=== PATIENT | male | born 1985 | race Caucasian/White ===

== ENCOUNTER 2019-06-21 17:30 | Observation (INO) ==
[2019-06-21] MEDS ORDERED: NS 1,000 ML IV ONE ×3 (17:53→20:25)
[2019-06-21 18:19] LABS: URINE SOURCE CLEAN CATCH
[2019-06-21 18:23] LABS: BASO% 1.7 % (0.0-0.8); EOS# 0.07 X1000 (0.0-0.7); EOS% 1.2 % (0.0-10.0); HEMATOCRIT 40.6 % (42.0-52.0); HEMOGLOBIN 13.6 g/dL (14.0-18.0); IMM GRAN# 0.01 X1000 (0.0-0.04); IMM GRAN% 0.2 % (0.0-0.5); LYMPH# 2.72 X1000 (1.2-3.4); LYMPH% 45.2 % (20.5-51.1); MCH 29.4 PG (27-31); MCHC 33.5 g/dL (33-37); MCV 87.7 FL (81-99); MONO# 0.88 X1000 (0.11-0.59); MONO% 14.6 % (1.7-9.3); MPV 9.7 FL (7.4-10.4); NEUT# 2.24 X1000 (1.4-6.5); NEUT% 37.1 % (42.2-75.2); PLT 373 X1000 (130-400); RBC 4.63 XMIL (4.7-6.1); RDW 15.2 % (11.5-14.5); WBC 6.02 X1000 (4.8-10.8)
[2019-06-21 18:28] LABS: BILIRUBIN URINE LARGE (NEGATIVE); BLOOD URINE NEGATIVE (NEGATIVE); COLOR YELLOW; GLUCOSE URINE NEGATIVE (NEGATIVE); KETONE URINE NEGATIVE (NEGATIVE); LEUKOCYTES URINE NEGATIVE (NEGATIVE); NITRITE URINE NEGATIVE (NEGATIVE); PH URINE 6.5; PROTEIN URINE TRACE mg/dL (NEGATIVE); SP GRAVITY URINE 1.017; TURBIDITY URINE HAZY (CLEAR); UROBILINOGEN URINE 2 mg/dL (NORMAL)
--- NOTE | 2019-06-21 18:31 | PROVIDER DOCUMENTATION ---
This chart was entered by Emily Fitzpatrick Scribe, acting as scribe for Hugo Barrera MD. HPI-Abdominal Pain/GI Problem - General Source: patient - History of Present Illness-ABD Nature of Presenting Problems: Pt is a 34 yom who presents to the ED with a cc of intermittent suprapubic abd pain. states that the pain last 1 min. reports quintanilla stool. reports nausea and n mis congestion. denies any fever. states that bm worsens pain. States that the pain began 2 days ago. Pt is jaundice in appearance. Abdominal Pain Onset Location: reports: RUQ, suprapubic Quality of Pain: reports: burning Severity in ED: reports: mild Onset/Duration: reports: 2 days ago Timing: reports: improving Activities at Onset: reports: none Modifying Factors: improves with: nothing Associated Symptoms: reports: sinus congestion/drainage Last BM: this evening Dark Stools Present?: reports: none noticed, other (jacobs) Rectal Bleeding: reports: none Rectal Pain: reports: none Emesis Description: reports: none Bruising or Bleeding Gums?: No Similar Symptoms Previously?: No Recently seen or treated by another doctor?: No <Hugo Barrera - Last Filed: 06/21/19 18:31> <Lamonte Asencio - Last Filed: 06/21/19 20:25> - General Chief Complaint: Abdominal Pain Stated Complaint: ABD PAIN Time Seen by Provider: 06/21/19 17:44 Allergies/Adverse Reactions: Patient Allergies Allergy/AdvReac Type Severity Reaction Status Date / Time Penicillins Allergy Unknown Verified 08/24/17 23:36 Home Medications: Home Medication List Medication Instructions Recorded Confirmed Last Taken Type Darunavir/Cobicistat [Prezcobix 1 dose PO DIRECTED 06/21/19 06/21/19 Unknown History 800 mg-150 mg Tablet] Emtricitabine/Tenofov Alafenam 1 tab PO DIRECTED 06/21/19 06/21/19 Unknown History [Descovy 200-25 mg Tablet] Review of Systems - Adult - REVIEW OF SYSTEMS - ADULT Constitutional: reports: see HPI Eyes: reports: no symptoms reported Ears, Nose, Mouth & Throat: reports: no symptoms reported Cardiovascular: reports: no symptoms reported Respiratory: reports: no symptoms reported Gastrointestinal: reports: see HPI, abdominal pain Genitourinary: reports: no symptoms reported Musculoskeletal: reports: no symptoms reported Integumentary: reports: no symptoms reported Neurological: reports: no symptoms reported Psychiatric: reports: no symptoms reported Endocrine: reports: no symptoms reported Hematologic/Lymphatic: reports: no symptoms reported Allergic/Immunologic: reports: no symptoms reported All Other Systems: Reviewed and Negative <Hugo Barrera - Last Filed: 06/21/19 18:31> Past History - Adult - PAST MEDICAL HISTORY-ADULT Review of Records: reports: Old Records Reviewed, Nursing Assessment Review, Medications Reviewed, Social history reviewed & non-contributory. Major Childhood Illnesses: reports: denies history Cardiovascular: reports: denies history Respiratory: reports: denies history Gastrointestinal: reports: denies history Obstetrical/Gynecological: reports: denies history Genitourinary: reports: denies history Musculoskeletal: reports: denies history Neurological: reports: denies history Endocrine/Immune: reports: HIV/AIDS Other Conditions: reports: denies history - IMMUNIZATION STATUS Childhood Immunizations: See Nurse Assessment Flu Vaccine: See Nurse Assessment - FAMILY HISTORY Family History: reviewed, not pertinent - SOCIAL HISTORY Smoking: non-smoker <Hugo Barrera - Last Filed: 06/21/19 18:31> Physical Exam-General - PHYSICAL EXAM-ADULT Initial Vital Signs Reviewed: No - CONSTITUTIONAL General Appearance: alert, other (JAUNDICE in color) - EYES Eyes: scleral icterus (slightly, 2-3 days). negative: pink conjunctivae (jaundice) - HEAD, EARS, NOSE, MOUTH & THROAT HENMT: normocephalic/atraumatic - RESPIRATORY Respiratory: chest non-tender, lungs clear, normal breath sounds. negative: crackles, rhonchi - CARDIOVASCULAR Cardiovascular: normal peripheral pulses, regular rate, rhythm - GASTROINTESTINAL (ABDOMEN) Abdominal Exam: normal bowel sounds, tenderness (suprapubic and RUQ). negative: non tender - SKIN Integumentary: jaundice. negative: normal color - PSYCHIATRIC Psych/Mental Status: normal mood/affect, normal thought content, normal thought process, oriented x 3 <Hugo Barrera - Last Filed: 06/21/19 18:31> Progress - PLAN OF CARE/RESULTS Progress/Plan/Lab Results: Vital Signs - 8 hr 06/21/19 17:36 Temperature 98 F Pulse Rate 78 Respiratory Rate 18 Blood Pressure 131/85 O2 Sat by Pulse Oximetry 98 Orders Category Date Time Status AMYLASE [CHEM] Stat Lab 06/21/19 17:40 Ordered CBC WITH DIFF [HEME] Stat Lab 06/21/19 17:40 Ordered COMPREHENSIVE METABOLIC PANEL [CHEM] Stat Lab 06/21/19 17:40 Uncollected LIPASE [CHEM] Stat Lab 06/21/19 17:40 Uncollected URINALYSIS W/POSS RFLX CULT [URINALYSIS] Stat Lab 06/21/19 17:40 Uncollected Result Diagrams: 06/21/19 18:18 - CHANGE OF SHIFT REPORT (ED Provider) 1 Report Given and Care Transferred to:: Luis M Time of Transfer: 19:00 Items Pending: Labs <Hugo Barrera - Last Filed: 06/21/19 18:31> - PLAN OF CARE/RESULTS Progress/Plan/Lab Results: Vital Signs - 8 hr 06/21/19 17:36 Temperature 98 F Pulse Rate 78 Respiratory Rate 18 Blood Pressure 131/85 O2 Sat by Pulse Oximetry 98 Laboratory Results - last 24 hr 06/21/19 06/21/19 06/21/19 18:15 18:18 18:18 WBC 6.02 RBC 4.63 L Hgb 13.6 L Hct 40.6 L MCV 87.7 MCH 29.4 MCHC 33.5 RDW Std Deviation 15.2 H Plt Count 373 MPV 9.7 Immature Gran % (Auto) 0.2 Neut % (Auto) 37.1 L Lymph % (Auto) 45.2 [place] % (Auto) 14.6 H Eos % (Auto) 1.2 Baso % (Auto) 1.7 H Immature Gran # (Auto) 0.01 Neut # (Auto) 2.24 Lymph # (Auto) 2.72 [place] # (Auto) 0.88 H Eos # (Auto) 0.07 Baso # (Auto) 0.10 Segmented Neutrophils 24 L Band Neutrophils 2 H Lymphocytes 48 Monocytes 18 H Atypical Lymphocytes 8.0 Hypochromia 1+ Large Platelets OCCASIONAL Sodium Potassium Chloride Carbon Dioxide Anion Gap BUN Creatinine Estimated GFR/1.73 m2 BUN/Creatinine Ratio Glucose Calculated Osmolality Calcium Total Bilirubin AST ALT Alkaline Phosphatase Creatine Kinase Total Protein Albumin Globulin Albumin/Globulin Ratio Amylase 56 Lipase Urine Source CLEAN CATCH Urine Color YELLOW Urine Turbidity HAZY Urine pH 6.5 Ur Specific Wilson 1.017 Urine Protein TRACE A Ur Glucose (Stick) NEGATIVE Ur Ketones (Stick) NEGATIVE Urine Blood NEGATIVE Urine Nitrite NEGATIVE Urine Bilirubin LARGE A Urobilinogen Dipstick 2 A Urine Leukocytes NEGATIVE Urine WBC (Auto) <10 Urine RBC (Auto) <10 U Epithel Cells (Auto) <10 Urine Bacteria (Auto) NEGATIVE Urine Crystals NONE SEEN Small Round Cells Not Reportable Urine Casts NONE SEEN Urine Yeast-like Cells NONE SEEN 06/21/19 06/21/19 18:18 18:18 WBC RBC Hgb Hct MCV MCH MCHC RDW Std Deviation Plt Count MPV Immature Gran % (Auto) Neut % (Auto) Lymph % (Auto) Bingham % (Auto) Eos % (Auto) Baso % (Auto) Immature Gran # (Auto) Neut # (Auto) Lymph # (Auto) Bingham # (Auto) Eos # (Auto) Baso # (Auto) Segmented Neutrophils Band Neutrophils Lymphocytes Monocytes Atypical Lymphocytes Hypochromia Large Platelets Sodium 140 Potassium 4.4 Chloride 99 Carbon Dioxide 31 Anion Gap 11 BUN 7 L Creatinine 0.5 L Estimated GFR/1.73 m2 > 60 BUN/Creatinine Ratio 14 Glucose 115 H Calculated Osmolality 278 Calcium 8.8 Total Bilirubin 9.10 H AST 161 H ALT 603 H Alkaline Phosphatase 432 H Creatine Kinase 30 Total Protein 7.5 Albumin 3.5 Globulin 4.0 Albumin/Globulin Ratio 1.0 Amylase Lipase 41 Urine Source Urine Color Urine Turbidity Urine pH Ur Specific Wilson Urine Protein Ur Glucose (Stick) Ur Ketones (Stick) Urine Blood Urine Nitrite Urine Bilirubin Urobilinogen Dipstick Urine Leukocytes Urine WBC (Auto) Urine RBC (Auto) U Epithel Cells (Auto) Urine Bacteria (Auto) Urine Crystals Small Round Cells Urine Casts Urine Yeast-like Cells Orders Category Date Time Status CT ABD/PELVIS W/IV CONT ONLY [CT] Stat Exams 06/21/19 18:57 Completed AMYLASE [CHEM] Stat Lab 06/21/19 18:18 Completed CBC WITH DIFF [HEME] Stat Lab 06/21/19 18:18 Completed CK PROFILE [SP CHEM] Stat Lab 06/21/19 18:18 Completed COMPREHENSIVE METABOLIC PANEL [CHEM] Stat Lab 06/21/19 18:18 Completed HEPATITIS PROFILE [HH] Routine Lab 06/21/19 18:18 Received LIPASE [CHEM] Stat Lab 06/21/19 18:18 Completed URINALYSIS W/POSS RFLX CULT [URINALYSIS] Stat Lab 06/21/19 18:15 Completed URINE MANUAL MICROSCOPIC [URINALYSIS] Stat Lab 06/21/19 18:15 Completed 0.9% Sodium Chloride Inj [Ns] 1,000 ml Med 06/21/19 17:53 Discontinued IV 999 mls/hr 0.9% Sodium Chloride Inj [Ns] 1,000 ml Med 06/21/19 19:53 Active IV 999 mls/hr Result Diagrams: 06/21/19 18:18 06/21/19 18:18 - REASSESSMENT Reassessment #1 Status: improving (feeling better with hydration discussed labs/xrays in depth with patient ---patient is OK with admissions [facility] discussed with accepting in transfer) <Lamonte Asencio - Last Filed: 06/21/19 20:25> Departure <Hugo Barrera - Last Filed: 06/21/19 18:31> - Departure Date of Disposition Decision: 06/21/19 Time of Disposition Decision: 20:24 Certified Medical Emergency: Emergent - Critical Care Note This patient required my direct & personal management of CC.: No <Lamonte Asencio - Last Filed: 06/21/19 20:25> - Departure DIAGNOSIS: Acute hepatitis, Jaundice, hepatocellular HIV (human immunodeficiency virus infection) Qualifiers: HIV symptom status: asymptomatic Qualified Code(s): Z21 - Asymptomatic human immunodeficiency virus [HIV] infection status Disposition: ADMITTED INPATIENT 09 Condition: Stable Referrals and Follow-Ups: Mello Zaragoza MD [Primary Care Provider] - Attestation - Physician/ DENISHA Attestation Patient care was provided by Advanced Practice Provider:: No The physician spent face to face time with patient:: Yes Advanced Practice Provider documentation review:: Supervising physician onsite and consulted in the evaluation and care of this patient. The physician did have a face to face encounter with the patient. <Hugo Barrera - Last Filed: 06/21/19 18:31> - Physician/ DENISHA Attestation Patient care was provided by Advanced Practice Provider:: No The physician spent face to face time with patient:: Yes Advanced Practice Provider documentation review:: Supervising physician onsite and consulted in the evaluation and care of this patient. The physician did have a face to face encounter with the patient. <Lamonte Asencio - Last Filed: 06/21/19 20:25> This chart was documented by the indicated scribe, (Emily Fitzpatrick Scribe) and accurately reflects the services I performed and decisions made by me, Hugo Barrera MD, as attested by the provider's signature.
[2019-06-21 18:36] LABS: AGAP 11; ALBUMIN 3.5 g/dL (3.5-5.0); ALKALINE PHOSPHATASE 432 U/L (32-122); BUN 7 mg/dL (8-22); CALCIUM 8.8 mg/dL (8.8-10.2); CHLORIDE 99 mmol/L (98-107); COSMO 278; CREATININE 0.5 mg/dL (0.7-1.2); ESTIMATED GFR > 60; GLUCOSE 115 mg/dL (70-104); GOT 161 U/L (10-34); GPT 603 U/L (10-44); LIPASE 41 U/L (13-60); POTASSIUM 4.4 mmol/L (3.5-5.1); SODIUM 140 mmol/L (136-145); TCO2 31 mmol/L (25-35); TOTAL PROTEIN 7.5 g/dL (6.3-8.3)
[2019-06-21 18:50] LABS: UR EPITHELIAL CELLS <10 /HPF (<10); URINE BACTERIA NEGATIVE /HPF; URINE CASTS NONE SEEN; URINE CRYSTALS NONE SEEN; URINE RBC <10 /HPF (<10); URINE WBC <10 /HPF (<10); URINE YEAST NONE SEEN
[2019-06-21 18:56] LABS: BANDS 2 % (0-1); LYMPHS 48 % (21-51); MONO 18 % (1-9); SEGS 24 % (42-75)
[2019-06-21 18:57] LABS: HYPOCHROM 1+; LARGE PLATELETS OCCASIONAL
--- NOTE | 2019-06-21 19:35 | Diag Imaging Result Doc PS360 ---
EXAM: CT ABD/PELVIS W/IV CONT ONLY 06/21/2019 HISTORY: abd pain, elevated LFTs TECHNIQUE: This exam was performed using automated exposure control, adjustment of mA or kV according to patient size, and/or use of iterative reconstruction technique. COMMENT: There are no previous studies. There is no evidence of acute disease in the visualized portion of the chest. There is periportal edema. The spleen is enlarged measuring over 14.6 cm in AP dimension. The pancreas is unremarkable. The kidneys are without evidence of hydronephrosis or mass. The gallbladder is contracted. There is some retained fluid and gas with solid contents in the stomach. There is stool in the colon. The small bowel is not distended. The aorta is not distended. There is a 19 mm bety hepatis node otherwise there is no evidence of significant adenopathy. Pelvis: The appendix is normal in appearance. There is minimal free fluid. The urinary bladder is not distended. There appears to be a nondistended testicle in the left inguinal canal. The regional skeleton is intact. IMPRESSION: Periportal edema and bety hepatis adenopathy suggestive of hepatitis. Mild splenomegaly. Electronically signed by Victor Manuel Damon 06/21/2019 7:33 PM
[2019-06-21] MEDS ORDERED: ZOFRAN ODT PO PRN (20:25)
[2019-06-21] MEDS ORDERED: NICODERM PATCH TD ONE ×2 (21:33→21:46)
[2019-06-22] MEDS ORDERED: ZOFRAN IV PRN (01:02)
[2019-06-22] MEDS ORDERED: NICODERM PATCH TD PRN (01:02)
[2019-06-22] MEDS ORDERED: MORPHINE IV PRN (01:02)
--- NOTE | 2019-06-22 01:59 | HISTORY AND PHYSICAL ---
ADDENDUM: PRIMARY CARE PROVIDER: Mello Zaragoza. REASON FOR ADMISSION: Patient was admitted via [facility] to our service for GI evaluation for right upper quadrant and epigastric pain of 5 days duration, passage of dark urine, pale stools and pruritus of the same duration. The patient denies any recent use of any medication although further questioning did reveal that he had been on Mobic for the last several months in addition to his HIV regimen. No herbal remedies. No recent history of travel. He denies any fever, chills, but admits to having loose stools. Exam is only notable for tenderness in the right upper quadrant, epigastric areas. No rebound or guarding. The rest of exam is benign. He does have icterus of the sclerae of his eyes. His lab work is only notable for AST 161, ALT 300, alkaline phosphatase 432 with total bilirubin of 9. CT showed periportal edema and bety hepatis adenopathy suggestive of hepatitis and mild splenomegaly. The patient does have clear features of obstructive jaundice probably secondary to periportal edema of the liver secondary to hepatitis. Suspect hepatitis could probably be drug-induced possibly from Mobic interaction with his HIV regimen. Alternative diagnosis is viral hepatitis. The patient denies any use of alcohol products. For now, supportive care, consult GI and we will repeat get an ultrasound to assess degree of obstruction. We will also start the patient on Questran for the itching 1 g q.4. cc: Timur Vora MD MTDD
--- NOTE | 2019-06-22 07:08 | HISTORY AND PHYSICAL ---
PRIMARY CARE PROVIDER: Dr. Mello Zaragoza. CHIEF COMPLAINT: Abdominal pain. HISTORY OF PRESENT ILLNESS: Mr. Interiano is a 34-year-old, male, who reports now that for 3 days, he has had right and left lower abdominal pain and right upper quadrant abdominal pain, for which he describes a constant pain that is crampy in nature. The patient has reported nausea, though no vomiting. He has been reporting diarrhea associated with this as well, and has been having reportedly jacobs stools. He reported that the diarrhea did start about 2 days prior to his abdominal pain. He denies any fever, body aches, or chills. He reports some occasional dizziness when going from a lying to a sitting position, and has reported a dull headache for the last few days as well. He denies any shortness of breath, cough, or chest pain. He also has been reporting that he has had some sinus congestion and drainage, and has been sneezing a bit. Though he denies any dysuria or difficulty urinating, he has reported that his urine has been very dark in color. He denies any pain, numbness, tingling, or swelling in extremities. The patient denies any recent new medicine or medication changes, though does state that he has been taking meloxicam 15 mg p.o. daily. I believe it was for some joint pain he was having. He denies any alcohol use, though he is a smoker. He does smoke 5 cigarettes per day. He denies any other illicit drug use. He also denies any recent travel. Upon evaluation in the ER, he was noted to have elevated liver function tests. Urinalysis did show a large amount of bilirubin. They did perform a CT abdomen and pelvis, which did note periportal edema and bety hepatis adenopathy suggestive of hepatitis. There was some mild splenomegaly as well. The patient has been transferred to [facility] for further treatment and evaluation of his transaminitis and abdominal pain. REVIEW OF SYSTEMS: A 14-point review of systems was conducted with the patient, and all were negative, except for pertinent positives mentioned in the above HPI. PAST MEDICAL HISTORY: History of HIV. PAST SURGICAL HISTORY: The patient denies any previous surgery. SOCIAL HISTORY: The patient is a current smoker. He does smoke 5 cigarettes per day. He started smoking when he was 19. He stated that he has cut this back recently. He did previously smoke 1 pack per day. He denies any alcohol or illicit drug use. FAMILY HISTORY: Positive for his mother having diabetes mellitus and hypertension. His father has diabetes mellitus and hypertension as well. He reports that his siblings are healthy. ALLERGIES: The patient reports allergies to penicillin. HOME MEDICATIONS: 1. Klonopin 1 mg p.o. b.i.d. p.r.n. for anxiety. 2. Prezcobix 800 mg/150 mg tablet, 1 tablet p.o. as directed. 3. Descovy 200/25 mg tablet, 1 tablet by mouth once daily. 4. Mobic 15 mg p.o. daily. DIAGNOSTIC DATA: White blood cell count is 6020, hemoglobin 13.6, hematocrit 40.6, platelet count is 373,000. Sodium 140, potassium 4.4, chloride 99, serum bicarbonate is 31, BUN 7, creatinine 0.5, with a GFR greater than 60, glucose 115, calcium 8.8. Total bilirubin is 9.1, AST 161, ALT 603, alkaline phosphatase is 432, CK 30, amylase 56, lipase 41. Urinalysis was obtained via clean catch, and was positive for trace protein and large bilirubin, though was negative for glucose, ketones, blood, nitrites, leukocytes, white blood cells, or bacteria. CT abdomen and pelvis did show periportal edema and bety hepatis adenopathy suggestive of hepatitis. There was also mild splenomegaly noted. This is per Radiology. Please see full CT report for all detailed findings. PHYSICAL EXAMINATION: VITAL SIGNS: Temperature 98.2 degrees, heart rate 74, respirations 16, blood pressure is 133/68, oxygen saturation is 100% on room air. GENERAL: Mr. Interiano is a pleasant, 34-year-old, male. He was resting in the inpatient bed. He was in no acute distress. He was awake, alert, and able to answer questions appropriately. HEENT: Head is atraumatic, normocephalic. Pupils are equal, round, reactive to light, were 3 mm bilaterally and brisk. Sclerae did have jaundice noted. Oral mucosa was moist. Oropharynx was clear. NECK: Supple. Trachea midline. CARDIOVASCULAR: The patient has S1, S2 present. No murmurs, gallops, rubs appreciated with a regular rate and rhythm. PULMONARY: The patient has symmetrical chest expansion bilaterally. Lung sounds are clear to auscultation in bilateral full bell. ABDOMEN: Soft, nondistended. The patient did have tenderness noted in right upper quadrant and right lower and left lower quadrants. Bowel sounds were present in all 4 quadrants and were normoactive. EXTREMITIES: No cyanosis or edema noted. Pulse, motor, and sensory were intact in all extremities. Radial and pedal pulses are 2+ bilaterally. INTEGUMENTARY: The patient's skin color is slightly jaundiced. It is dry and intact. NEUROLOGICAL: The patient is alert and oriented to person, place, time, and situation. He is able to move all extremities. There are no focal neurological deficits noted. ASSESSMENT AND PLAN: 1. Transaminitis. 2. Abdominal pain. 3. Diarrhea. 4. History of human immunodeficiency virus. 5. Nicotine dependence. It is possible that the patient may have obstructive jaundice, possibly secondary to periportal edema of the liver secondary to hepatitis. It is possible that his hepatitis may be drug-induced, possibly from an interaction between his HIV regimen and his Mobic. Though we are going to continue to rule out other causes, we will do a hepatitis profile. Will obtain an abdominal ultrasound as well. The patient has reported 5 days of diarrhea that was onset prior to his abdominal pain. We will order some stool studies also. We will provide gentle IV hydration, p.r.n. pain medication and nausea medicine. We will provide nicotine patch for nicotine dependence. We did litigation counsel the patient on the importance of smoking cessation. We will continue to do this throughout his admission and upon discharge. Venous thromboembolism prophylaxis will be provided with sequential compression devices. He will be nothing by mouth at this time for his abdominal ultrasound. We have placed a consult with Dr. Rojas with Gastroenterology. Will await their evaluation and further recommendations as well. Further orders and recommendations pending hospital course, diagnostic studies, and physician evaluation. Dictated by JAMAR Alanis for Timur Vora MD cc: Timur Vora MD
[2019-06-22 07:43] VITALS: BP 107/50
[2019-06-22] MEDS ORDERED: PEPCID IV SCH (08:15)
[2019-06-22] MEDS ORDERED: SODIUM CHLORIDE 0.9% INJ SCH (08:15)
--- NOTE | 2019-06-22 08:45 | Diag Imaging Result Doc PS360 ---
EXAM: US ABDOMEN-COMPLETE INDICATION: Transaminitis,Abdominal Pain COMPARISON: None. FINDINGS: No gallstones are identified. The gallbladder wall is at the upper limit of normal for thickness measuring up to 3 mm. Gallbladder wall appears slightly edematous. The common bile duct is normal in diameter. Sonographic Hernandez's sign was reported to be negative. The liver is very slightly prominent measuring up to 17.9 cm in length. No discrete hepatic mass is identified. Portal venous flow is hepatopetal. The visualized pancreas is unremarkable. The aorta and IVC are grossly unremarkable. The spleen is unremarkable. The kidneys are grossly unremarkable. IMPRESSION: 1.Gallbladder wall thickness at the upper limit of normal and possibly slightly edematous. Correlate clinically to exclude cholecystitis. Note that sonographic Hernandez's sign was reported to be negative by the technologist. 2.Marginally prominent liver. Electronically signed by Umang Mendez 06/22/2019 8:42 AM
[2019-06-22] MEDS: NS 1,000 ML IV SCH ×2 (09:19→09:20)
[2019-06-22 10:42] LABS: BASO# 0.03 X1000 (0.0-0.2); BASO% 0.7 % (0.0-0.8); EOS# 0.08 X1000 (0.0-0.7); EOS% 1.8 % (0.0-10.0); HEMOGLOBIN 13.5 g/dL (14.0-18.0); LYMPH# 2.28 X1000 (1.2-3.4); LYMPH% 51.8 % (20.5-51.1); MCH 29.5 PG (27-31); MCHC 33.8 g/dL (33-37); MCV 87.3 FL (81-99); MONO# 0.65 X1000 (0.11-0.59); MONO% 14.8 % (1.7-9.3); MPV 10.2 FL (7.4-10.4); NEUT# 1.36 X1000 (1.4-6.5); NEUT% 30.9 % (42.2-75.2); PLT 320 X1000 (130-400); RBC 4.58 XMIL (4.7-6.1); RDW 15.4 % (11.5-14.5)
[2019-06-22 11:05] LABS: AGAP 10; ALB/GLOB RATIO 0.8; ALKALINE PHOSPHATASE 431 U/L (32-122); BUN 5 mg/dL (8-22); CALCIUM 8.3 mg/dL (8.8-10.2); CHLORIDE 104 mmol/L (98-107); COSMO 272; CREATININE 0.8 mg/dL (0.7-1.2); ESTIMATED GFR > 60; GLUCOSE 80 mg/dL (70-104); GOT 127 U/L (10-34); GPT 463 U/L (10-44); INR 1.13; POTASSIUM 4.6 mmol/L (3.5-5.1); PROTIME 14.7 Seconds (11.0-16.0); SODIUM 138 mmol/L (136-145); TCO2 24 mmol/L (25-35); TOTAL BILIRUBIN 8.57 mg/dL (0.20-1.00); TOTAL PROTEIN 6.8 g/dL (6.3-8.3)
[2019-06-22 11:06] LABS: PTT 36.5 Seconds (22.3-41.8)
--- NOTE | 2019-06-22 15:46 | GASTROENTEROLOGY CONSULTATION ---
DATE: 06/22/2019 REASON FOR CONSULT: Abdominal pain. HISTORY OF PRESENT ILLNESS: Mr. Interiano is a 34-year-old male who went to [facility] yesterday evening and was brought to [facility] last night with complaints of dark urine. Abdominal pain in the right lower quadrant, rating his pain as 5/10. Mentioning it as a burning sensation. He has denied any nausea or vomiting, but he mentioned that the day before yesterday he had some nausea and vomiting. He has denied any shortness of breath, fever, or chills. The patient does have a history of HIV for which he is taking treatment. The patient also takes Mobic for his knee pain. PAST MEDICAL HISTORY: HIV which he is getting treated for. PAST SURGICAL HISTORY: Denies having any surgeries. SOCIAL HISTORY: He lives with his partner. He is a smoker. He smokes at least 5 cigarettes per day. He was a past alcoholic. Denies taking any illicit or IV drugs. FAMILY HISTORY: Positive for diabetes and hypertension. ALLERGIES: Allergic to penicillin. HOME MEDICATIONS: Meloxicam 15 mg daily, clonazepam 1 mg BID PRN, Descovy 200/25 1 tab as directed, Prezcobix 800/15 mg 1 tab as directed. REVIEW OF SYSTEMS: As per HPI. Otherwise, 12 point review of system is negative. PHYSICAL EXAMINATION: Vital Signs: Temperature 97.4 degrees, pulse 71, respirations 18, blood pressure 107/50, oxygen saturation 95% on room air. The patient's weight is 175 pounds. BMI is 25.9 kg/m2. General: He is alert, oriented x3, and in no acute distress. HEENT: Pale conjunctivae. No icterus. Neck: Supple. Lungs: Clear to auscultation. Cardiovascular: Regular rate and rhythm. Abdomen: Soft, tender in the right lower quadrant. Active bowel sounds heard in all 4 quadrants. Extremities: No clubbing, no cyanosis. No edema. Pedal 2+ present bilaterally. Neurologic: Alert, oriented x3, nonfocal, cranial nerves 2-12 grossly intact. LABORATORY DATA: WBCs 4.40, RBC 4.58, hemoglobin is 13.5, hematocrit 40.0. Platelet count is 320,000. PT 14.7, INR is 1.13. Sodium 138, potassium chloride 10, BUN 5, creatinine 0.8, glucose 80, calcium 8.3, total bilirubin 8.57, AST 127, ALT 643. The alkaline phosphatase is 431, albumin is 3.0. His urinalysis yesterday showed trace of protein, large amounts of bilirubin. IMAGING: Abdominal ultrasound showed gallbladder wall thickness at the upper limit of normal and possibly slight edematous. It correlates clinically to exclude cholelithiasis. Marginally prominent liver; Abdomen and pelvis CT showed periportal edema for the hepatic adenopathy suggestive of hepatitis. Mild splenomegaly. IMPRESSION AND PLAN: Elevated liver enzymes Abdominal pain History of HIV on Treatment Tobacco abuse Jaundice Daily NSAIDs use for few months PLAN: Mr. Interiano is a 34-year-old male with a history of HIV. GI has been following him for his abdominal pain and elevated liver enzymes. The patient currently has discharge orders to go home. We have ordered the chronic liver disease workup. Advised to stop NSAIDS. We will follow him as an outpatient in 3 to 4 weeks for follow up on chronic liver disease work up. This plan was discussed with Dr. Rojas. Thank you for the consult and please call us with any further questions or concerns. Dictated by JAMAR Ray for Prosper Rojas MD cc: Prosper Rojas MD I have seen and examined the patient myself and I agree with the above plan of care. He should follow up with PCP in 1-2 days to recheck his liver function tests if discharged. Please call with any questions or concerns. EMILY
--- NOTE | 2019-06-23 12:59 | DISCHARGE SUMMARY ---
ADMISSION DATE: 06/21/2019 DISCHARGE DATE: 06/22/2019 Discharged against medical advice note. Patient admitted on 06/21 with complaints of abdominal pain primarily. He was found to have significant hepatitis with bilirubin of 9, AST 161, ALT 603, alkaline phosphatase 432. Appeared to have hepatitis. Concern was primarily for viral versus drug related as his CT did not show any sign of obstruction. On ultrasound, he had a prominent liver and slightly thickened gallbladder without any other sign of cholecystitis. Workup was in progress. However, the day after admission, patient left against medical advice prior to being seen with no discussion of further workup, changes to his medications or anything else. Last vitals: Temperature 97.4 degrees, pulse 71 respirations 18, blood pressure 107/50, O2 saturation 95% on room air. Discharge diet, no discussion. Patient left against medical advice. Discharge medications should probably be changed to different HIV medication, but patient left prior to any discussion of medication changes. The patient left AMA. The patient left against medical advice prior to any plans being made or discussed.
[2019-06-23 14:49] LABS: HEPATITIS PROFILE ACUTE SEE COMMENTS
== END 2019-06-22 11:58 | disposition left against medical advice (07) ==
LOC: P.ED 17:30 → 3N 21:48 → INTOOBSV 21:48 → SUATTDRO 21:48
PROVIDERS: ATTEND Internal Medicine